=== PATIENT | female | born 1955 | race Caucasian/White ===

== ENCOUNTER 2016-06-19 14:15 | Emergency (ER) | payer BC ==
[2016-06-19 14:51] VITALS: BP 107/59
--- NOTE | 2016-06-19 15:05 | UC ---
Throat Pain/Nasal Teja HPI - HPI Summary HPI Summary: sinus congestion and cough with body aches times 7 days. - History of Current Complaint Chief Complaint: UCRespiratory Stated Complaint: COUGH,SORE THROAT Time Seen by Provider: 06/19/16 14:52 Hx Obtained From: Patient Hx Last Menstrual Period: TUBAL ?: No Onset/Duration: Sudden Onset Severity: Moderate Pain Intensity: 6 Pain Scale Used: 0-10 Numeric Cough: Productive Associated Signs & Symptoms: Positive: Dysphagia, Sinus Discomfort, Nasal Discharge - Allergies/Home Medications Allergies/Adverse Reactions: Allergies Allergy/AdvReac Type Severity Reaction Status Date / Time Sulfa Drugs AdvReac Intermediate GI Upset Verified 06/19/16 14:45 Home Medications: Home Medications Dextromethorphan-Guaifenesin [Mucinex Dm Maximum Streng 60-1200 mg] 1 tab PO Q4H PRN 06/19/16 [History Confirmed 06/19/16] PMH/Surg Hx/FS Hx/Imm Hx Previously Healthy: Yes Endocrine History Of: Reports: Thyroid Disease - Hypothyroidism Denies: Diabetes, Hyperthyroidism, Hypothyroidism, Dyslipidemia Cardiovascular History Of: Denies: Cardiac Disorders, Hypertension, Pacemaker/ICD, Myocardial Infarction , Congestive Heart Failure, Atrial Fibrillation, Deep Vein Thrombosis, Bleeding Disorders Respiratory History Of: Denies: COPD, Asthma, Bronchitis, Pneumonia, Pulmonary Embolism GI/ History Of: Denies: Gastroesophageal Reflux, Ulcer, Gastrointestinal Bleed, Gall Bladder Disease, Kidney Stones, Diverticulitis, Renal Disease, Urosepsis Neurological History Of: Denies: TIA, CVA, Dementia, Seizures, Migraine Psychological History Of: Denies: Anxiety, Depression, Bipolar Disorder, Schizophrenia, Post Traumatic Stress Disorder Cancer History Of: Denies: Lung Cancer, Colorectal Cancer, Breast Cancer, Prostate Cancer, Cervical Cancer Other History Of: Anticoagulant Therapy - Aspirin daily. Negative For: HIV, Hepatitis B, Hepatitis C - Surgical History Surgical History: Yes Surgery Procedure, Year, and Place: Tubal Ligation, 1979, [facility] - Family History Known Family History: Positive: Hypertension Negative: Diabetes - Social History Alcohol Use: None Substance Use Type: None Smoking Status (MU): Current Some Day Smoker Type: Cigarettes Amount Used/How Often: 2-3 per WEEK Length of Time of Smoking/Using Tobacco: 20 YRS - Immunization History Most Recent Influenza Vaccination: 2016 Most Recent Tetanus Shot: 2010 Review of Systems Constitutional: Fatigue Skin: Negative Eyes: Negative ENT: Sore Throat, Ear Ache, Nasal Discharge Respiratory: Cough Cardiovascular: Negative Gastrointestinal: Negative Genitourinary: Negative Motor: Negative Neurovascular: Negative Musculoskeletal: Negative Neurological: Negative Psychological: Negative All Other Systems Reviewed And Are Negative: Yes Physical Exam Triage Information Reviewed: Yes Appearance: Well-Nourished, Ill-Appearing, Pain Distress Vital Signs: Initial Vital Signs Temp 98.9 F 06/19/16 14:47 Pulse 75 06/19/16 14:47 Resp 16 06/19/16 14:47 BP 107/59 06/19/16 14:47 Pulse Ox 95 06/19/16 14:47 Vital Signs Reviewed: Yes Eye Exam: Normal Eyes: Positive: Conjunctiva Clear ENT: Positive: Pharyngeal erythema, Nasal congestion, Nasal drainage, TMs normal Dental Exam: Normal Neck exam: Normal Neck: Positive: Supple, Nontender, Enlarged Nodes @ - left cervical Respiratory Exam: Normal Respiratory: Positive: Chest non-tender, Lungs clear, Normal breath sounds Cardiovascular Exam: Normal Cardiovascular: Positive: RRR, No Murmur, Pulses Normal Abdominal Exam: Normal Abdomen Description: Positive: Nontender, No Organomegaly, Soft Bowel Sounds: Positive: Present Musculoskeletal Exam: Normal Musculoskeletal: Positive: Strength Intact, ROM Intact, No Edema Neurological Exam: Normal Psychological Exam: Normal Skin Exam: Normal Throat Pain/Nasal Course/Dx - Differential Dx/Diagnosis Differential Diagnosis/HQI/PQRI: Influenza, Laryngitis, Pharyngitis, Sinusitis, Tonsillitis Provider Diagnoses: sinusitis. cough Discharge - Discharge Plan Condition: Stable Disposition: HOME Prescriptions: Azithromyxin KAYCEE (NF) [Z-Kaycee (Zithromax)] 250 mg PO .ZPAK INSTRUCTIONS #6 tab predniSONE TAB* [Deltasone TAB*] 40 mg PO DAILY #10 tab Patient Education Materials: Sinusitis (ED) Additional Instructions: take the medication as prescribed. Continue with manual sinus drainage. Start prednisone tomorrow morning. Get plenty of rest and stay hydrated.
== END 2016-06-19 15:17 | disposition home or self-care (01) ==
LOC: UCCORT 14:15
DX: J32.9 Chronic sinusitis, unspecified (principal); R05 Cough; Z88.2 Allergy status to sulfonamides; F17.210 Nicotine dependence, cigarettes, uncomplicated
CPT/HCPCS: 99212; G0463

== ENCOUNTER 2017-03-02 08:00 | Emergency (ER) | payer BC ==
[2017-03-02 08:10] VITALS: BP 137/65
--- NOTE | 2017-03-02 08:33 | UC ---
Respiratory Complaint HPI - HPI Summary HPI Summary: cough, congestion since yesterday. she is a smoker. no prior chronic lung disease. - History of Current Complaint Chief Complaint: UCRespiratory Stated Complaint: COUGH, CONGESTION Time Seen by Provider: 03/02/17 08:21 Hx Obtained From: Patient Hx Last Menstrual Period: TUBAL Onset/Duration: Gradual Onset, Lasting Days Timing: Constant Severity Initially: Moderate Severity Currently: Moderate Character: Cough: Nonproductive Aggravating Factors: Nothing Alleviating Factors: Nothing Associated Signs And Symptoms: Positive: URI, Nasal Congestion, Hoarseness. Negative: Dyspnea, Fever, Chills, Wheezing, Hemoptysis, Dizziness, Calf Pain, Calf Swelling, Edema - Risk Factors Pulmonary Embolism Risk Factors: Smoking Cardiac Risk Factors: Smoking - Allergies/Home Medications Allergies/Adverse Reactions: Allergies Allergy/AdvReac Type Severity Reaction Status Date / Time Sulfa Drugs AdvReac Intermediate GI Upset Verified 03/02/17 08:06 PMH/Surg Hx/FS Hx/Imm Hx Previously Healthy: No - smoker. Other History Of: Anticoagulant Therapy - Aspirin daily. Negative For: HIV, Hepatitis B, Hepatitis C - Surgical History Surgical History: Yes Surgery Procedure, Year, and Place: Tubal Ligation, 1979, [facility] - Family History Known Family History: Positive: Hypertension Negative: Diabetes - Social History Occupation: Employed Full-time Alcohol Use: None Substance Use Type: None Smoking Status (MU): Current Some Day Smoker Type: Cigarettes Amount Used/How Often: 2-3 per WEEK Length of Time of Smoking/Using Tobacco: 20 YRS - Immunization History Most Recent Influenza Vaccination: NONE 2017 Most Recent Tetanus Shot: 2010 Review of Systems ENT: Sinus Congestion Respiratory: Cough All Other Systems Reviewed And Are Negative: Yes Physical Exam Triage Information Reviewed: Yes Appearance: Well-Appearing, No Pain Distress, Well-Nourished Vital Signs: Initial Vital Signs Temp 97.7 F 03/02/17 08:07 Pulse 70 03/02/17 08:07 Resp 18 03/02/17 08:07 BP 137/65 03/02/17 08:07 Pulse Ox 99 03/02/17 08:07 Vital Signs Reviewed: Yes ENT: Positive: Pharyngeal erythema, Nasal congestion, TMs normal. Negative: Tonsillar swelling, Tonsillar exudate, Trismus Neck exam: Normal Neck: Positive: Supple, Nontender, No Lymphadenopathy Respiratory Exam: Normal Respiratory: Positive: Normal breath sounds, No respiratory distress, No accessory muscle use. Negative: Respiratory distress, Decreased breath sounds, Accessory muscle use, Crackles, Rhonchi, Stridor, Wheezing Cardiovascular Exam: Normal Abdominal Exam: Normal Musculoskeletal Exam: Normal Neurological Exam: Normal Psychological Exam: Normal Skin Exam: Normal UC Diagnostic Evaluation - Laboratory O2 Sat by Pulse Oximetry: 99 Respiratory Course/Dx - Differential Dx/Diagnosis Differential Diagnosis/HQI/PQRI: Airway Obstruction, Aspiration, Asthma, Bronchitis, CHF, Pulmonary Edema, Exacerbation Of COPD, Influenza, Laryngitis, Lower Resp Infection, Pneumothorax, Pulmonary Embolism, SARS, Sinusitis Provider Diagnoses: uri Discharge - Discharge Plan Condition: Good Disposition: HOME Prescriptions: Azithromyxin KAYCEE (NF) [Z-Kaycee (Zithromax) 250 mg tabs #6] 2 tab PO .TODAY, THEN 1 DAILY #6 tab guaiFENesin/CODIEN 100MG-10MG* [Robitussin AC 100Mg-10Mg*] 10 ml PO Q8HR #150 udc MDD 30 Patient Education Materials: Decongestant/Expectorant (By mouth), Upper Respiratory Infection (ED) Forms: *Work Release Referrals: Stuart Garibay MD [Primary Care Provider] - If Needed
== END 2017-03-02 08:38 | disposition home or self-care (01) ==
LOC: UCCORT 08:00
DX: J06.9 Acute upper respiratory infection, unspecified (principal); F17.210 Nicotine dependence, cigarettes, uncomplicated; Z88.2 Allergy status to sulfonamides
CPT/HCPCS: 99212; G0463

== ENCOUNTER 2018-05-05 08:03 | Emergency (ER) | payer BC ==
[2018-05-05 08:26] VITALS: BP 141/61
[2018-05-05] MEDS ORDERED: Albuterol 2.5 MG/3 ML NEB.SOL* (0.083%) INH ONE (08:48)
--- NOTE | 2018-05-05 09:08 | ED ---
Respiratory - HPI Summary HPI Summary: 62 year old female presents with 2 week history of URI symptoms with cough. She was seen by her PCP and started on course of azithromycin which she completed. States symptoms did not improve and was re-evaluated by PCP on and stared on 10 day course of doxycycline. She has completed 4 days of this prescription. Reports nasal congestion, nasal drainage, mild shortness of breath , occasional wheezing, and productive cough for yellow sputum. Denies fever, chills, ear pain, sore throat, chest pain, palpitations, abdominal pain, nausea , or vomiting. Quit smoking 3 weeks ago. Previously smoked 1/2 PPD. - History of Current Complaint Chief Complaint: UCRespiratory Stated Complaint: COUGH/ACHES Time Seen by Provider: 05/05/18 08:19 Hx Obtained From: Patient Onset/Duration: Gradual Onset, Lasting Weeks - 2 Current Severity: Mild Pain Intensity: 2 Character: Wheezing, Cough (Productive) Sputum Amount: Small Sputum Color: Yellow Aggravating Factor(s): Nothing Alleviating Factor(s): Nothing Associated Signs and Symptoms: SOB, URI, Wheezing, Nasal Congestion - Allergy/Home Medications Allergies/Adverse Reactions: Allergies Allergy/AdvReac Type Severity Reaction Status Date / Time Sulfa (Sulfonamide Allergy GI Upset Verified 05/05/18 08:14 Antibiotics) Home Medications: Home Medications Aspirin EC TAB* [Ecotrin EC Low Dose 81 MG*] 1 tab DAILY 05/05/18 [History Confirmed 05/05/18] Codeine Phosphate/Guaifenesin [Virtussin AC Liquid] 10 ml BEDTIME PRN 05/05/18 [ History Confirmed 05/05/18] DOXYcycline CAP(*) [DOXYcycline 100MG CAP(*)] 1 cap BID 05/05/18 [History Confirmed 05/05/18] Levothyroxine TAB* [Synthroid 75 MCG TAB*] 1 tab DAILY 05/05/18 [History Confirmed 05/05/18] PMH/Surg Hx/FS Hx/Imm Hx Previously Healthy: Yes Endocrine/Hematology History: Reports: Hx Anticoagulant Therapy - Aspirin daily. , Hx Thyroid Disease - Hypothyroidism Denies: Hx Diabetes Cardiovascular History: Denies: Hx Congestive Heart Failure, Hx Deep Vein Thrombosis, Hx Hypertension , Hx Myocardial Infarction, Hx Pacemaker/ICD Respiratory History: Denies: Hx Asthma, Hx Chronic Obstructive Pulmonary Disease (COPD), Hx Lung Cancer, Hx Pneumonia, Hx Pulmonary Embolism GI History: Denies: Hx Gall Bladder Disease, Hx Gastrointestinal Bleed, Hx Ulcer, Hx Urosepsis History: Denies: Hx Kidney Stones, Hx Renal Disease Neurological History: Denies: Hx Dementia, Hx Migraine, Hx Seizures, Hx Transient Ischemic Attacks (TIA) Psychiatric History: Denies: Hx Anxiety, Hx Depression, Hx Schizophrenia, Hx Bipolar Disorder - Surgical History Surgery Procedure, Year, and Place: Tubal Ligation, 1979, [facility] Infectious Disease History: No Infectious Disease History: Denies: Traveled Outside the [place] in Last 30 Days - Family History Known Family History: Positive: Hypertension Negative: Diabetes - Social History Occupation: Employed Full-time Lives: With Family Alcohol Use: None Substance Use Type: Reports: None Smoking Status (MU): Former Smoker Type: Cigarettes Amount Used/How Often: <1/2 PPD x20 years Length of Time of Smoking/Using Tobacco: 20 YRS Review of Systems Negative: Fever, Chills Negative: Drainage, Erythema Positive: Nasal Discharge. Negative: Sore Throat, Ear Ache Negative: Palpitations, Chest Pain Positive: Shortness Of Breath, Cough, Other - Wheezing Negative: Abdominal Pain, Vomiting, Nausea All Other Systems Reviewed And Are Negative: Yes Physical Exam Triage Information Reviewed: Yes Vital Signs On Initial Exam: Initial Vitals Temp Pulse Resp BP Pulse Ox 98.2 F 70 20 141/61 94 05/05/18 08:20 05/05/18 08:20 05/05/18 08:20 05/05/18 08:20 05/05/18 08:20 Vital Signs Reviewed: Yes Appearance: Positive: Well-Appearing, No Pain Distress, Well-Nourished Skin: Positive: Warm, Skin Color Reflects Adequate Perfusion, Dry Eyes: Positive: Conjunctiva Clear. Negative: Discharge ENT: Positive: Pharyngeal erythema - Mild with cobblestoning, Nasal congestion, Nasal drainage, TMs normal, Uvula midline. Negative: Tonsillar swelling, Tonsillar exudate, Sinus tenderness Neck: Positive: Supple, Nontender, No Lymphadenopathy Respiratory/Lung Sounds: Positive: Rales - Fine crackle RLL, Wheezes - Mild bilateral wheezes Cardiovascular: Positive: RRR, S1, S2. Negative: Murmur Abdomen Description: Positive: Nontender, No Organomegaly, Soft. Negative: Distended, Guarding Neurological: Positive: Alert, Oriented to Person Place, Time Diagnostics - Vital Signs Vital Signs Temp Pulse Resp BP Pulse Ox 05/05/18 08:20 98.2 F 70 20 141/61 94 - Laboratory Lab Statement: Any lab studies that have been ordered have been reviewed, and results considered in the medical decision making process. Re-Evaluation - Re-Evaluation First Eval Re-Evaluation Time: 09:16 Change: Improved Comment: Patient states breathing easier. Cough improved. Bilateral breaths sounds clear with good air exchange. Disposition - Course Course Of Treatment: 62 year old female presents with 2 week history of URI symptoms including cough, nasal congestion, nasal drainage, mild shortness of breath, occasional wheezing, and productive cough for yellow sputum. She was seen by her PCP and started on course of azithromycin which she completed. States symptoms did not improve and was re-evaluated by PCP on and stared on 10 day course of doxycycline. Exam revealed nasal congestion, mild pharyngeal erythema with cobblestoning, bilateral mild wheezes and fine crackles to RLL. Afebrile. She was given albuterol nebulizer with improvement in wheezes and cough. No wheezes or crackles auscultated post-neb treatment. Like an acute bronchitis with RAD however cannot rule out possible CAP. She has been treated with course of azithromycin and is currently on doxycycline therefore did not obtain CXR at this time. Will treat for the RAD with short course of prednisone and albuterol inhaler PRN. She is to continue the doxycycline as prescribed and follow up with PCP within 7 days for recheck of symptoms. Warning symptoms reviewed. Verbalizes understanding and agrees with POC. - Diagnoses Provider Diagnoses: URI with cough and congestion Discharge - Sign-Out/Discharge Documenting (check all that apply): Patient Departure All imaging exams completed and their final reports reviewed: No Studies - Discharge Plan Condition: Stable Disposition: HOME Prescriptions: Albuterol HFA INHALER* [Ventolin HFA Inhaler*] 2 puff INH Q4H PRN #1 mdi PRN Reason: Sob/Wheezing Fluticasone NASAL SPRAY 50MCG* [Flonase NASAL SPRAY 50MCG*] 2 spray BOTH NARES DAILY #1 btl predniSONE [Prednisone 20 MG TAB] 40 mg PO DAILY 5 Days #10 tablet Patient Education Materials: Upper Respiratory Infection (ED), Wheezing (ED) Referrals: Stuart Garibay MD [Primary Care Provider] - 7 Days Additional Instructions: Your history and exam are consistent with an upper respiratory infection. The wheezing and shortness of breath are likely from some inflammation of the airways related to your infection. Continue taking the doxycycline as directed. Be sure to complete the entire course even if you are feeling better. Start prednisone 2 tablets daily for 5 days to help reduce the inflammation and improve the wheezing. Use albuterol inhaler 2 puffs every 4-6 hours as needed for shortness of breath , wheezing, or coughing fits. Use a saline rinse kit such as Neti Pot or NeilMed at least twice a day. Start fluticasone nasal spray 2 sprays each nostril once a day. Take acetaminophen (Tylenol) or ibuprofen (Advil, Motrin) according to directions as needed for fever or pain. Use salt water gargles several times a day if you have a sore throat. You may also use Chloraseptic spray or Cepacol lozenges for some temporary pain relief from your sore throat. Follow-up with your primary care provider in 7 days for recheck of symptoms. Your blood pressure was elevated in the clinic today and should be rechecked at that time. Seek immediate medical attention if you have a persistent fever greater than 100.5 F despite taking acetaminophen or ibuprofen, develop chest pain, difficulty breathing, or have any worsening of symptoms. - Billing Disposition and Condition Condition: STABLE Disposition: Home - Attestation Statements Provider Attestation: I was available for consult. This patient was seen by the ALIZA. The patient was not presented to, seen by, or examined by me. -Amanda
== END 2018-05-05 09:31 | disposition home or self-care (01) ==
LOC: UCCORT 08:03
DX: J06.9 Acute upper respiratory infection, unspecified (principal); R05 Cough; R09.81 Nasal congestion; Z87.891 Personal history of nicotine dependence; Z88.1 Allergy status to other antibiotic agents; E03.9 Hypothyroidism, unspecified; Z79.01 Long term (current) use of anticoagulants
CPT/HCPCS: 99212; G0463

== ENCOUNTER 2018-05-29 09:52 | Emergency (ER) | payer BC ==
[2018-05-29 10:06] VITALS: BP 137/70
--- NOTE | 2018-05-29 10:19 | UC ---
Cardiac HPI - HPI Summary HPI Summary: PT PRESENTS C/O gradual onset left anterior chest pain that began after having been diagnosed with bronchitis and pneumonia. Pt states pain worsens with palpation to area and certain movements. Denies, SOB , arm, jaw or back pain. Denies injury or hx of CAD - History of Current Complaint Chief Complaint: UCChestPain Stated Complaint: CHEST PAIN,FATIGUE Time Seen by Provider: 05/29/18 10:13 Hx Obtained From: Patient Hx Last Menstrual Period: TUBAL Onset/Duration: Gradual Onset, Lasting Days, Still Present Timing: Constant Initial Severity: Mild Current Severity: Moderate - with palpation and with positional changes Pain Intensity: 5 Chest Pain Location: Discrete at:, Upper Sternal, Left Anterior Aggravating Factor(s): Position, Movement, Deep Breaths Alleviating Factor(s): Rest, Position Associated Signs & Symptoms: Positive: Chest Pain - Risk Factors Pulmonary Embolism Risk Factors: Negative Cardiac Risk Factors: Negative Atrial Fibrillation: Negative TAD Risk Factors: Negative - Allergy/Home Medications Allergies/Adverse Reactions: Allergies Allergy/AdvReac Type Severity Reaction Status Date / Time Sulfa (Sulfonamide Allergy GI Upset Verified 05/29/18 10:00 Antibiotics) Home Medications: Home Medications Ascorbic Acid TAB* [Vitamin C TAB*] 1,000 mg PO DAILY 05/29/18 [History Confirmed 05/29/18] PMH/Surg Hx/FS Hx/Imm Hx Previously Healthy: Yes Endocrine History: Thyroid Disease Other History Of: Anticoagulant Therapy - Aspirin daily. Negative For: HIV, Hepatitis B, Hepatitis C - Surgical History Surgical History: Yes Surgery Procedure, Year, and Place: Tubal Ligation, 1979, [facility] - Family History Known Family History: Positive: Hypertension Negative: Diabetes - Social History Occupation: Retired Lives: With Family Alcohol Use: None Substance Use Type: None Smoking Status (MU): Current Some Day Smoker Type: Cigarettes Amount Used/How Often: <1/2 PPD x20 years Length of Time of Smoking/Using Tobacco: < 1/2 PPD x 34 Years (decreased amount ~05/08/18) Have You Smoked in the Last Year: Yes When Did the Patient Quit Smoking/Using Tobacco: Mar 2018 - Immunization History Most Recent Influenza Vaccination: NONE 2016 Most Recent Tetanus Shot: 2010 Review of Systems All Other Systems Reviewed And Are Negative: Yes Constitutional: Positive: Negative Skin: Positive: Negative Eyes: Positive: Negative ENT: Positive: Negative Respiratory: Positive: Negative Cardiovascular: Positive: Chest Pain Gastrointestinal: Positive: Negative Genitourinary: Positive: Negative Motor: Positive: Negative Musculoskeletal: Positive: Arthralgia, Myalgia Neurological: Positive: Negative Psychological: Positive: Negative Is Patient Immunocompromised?: No Physical Exam Triage Information Reviewed: Yes Appearance: Well-Appearing Vital Signs: Initial Vital Signs Temp 97.9 F 05/29/18 10:02 Pulse 80 05/29/18 10:02 Resp 16 05/29/18 10:02 BP 137/70 05/29/18 10:02 Pulse Ox 100 05/29/18 10:02 Vital Signs Reviewed: Yes Eye Exam: Normal ENT Exam: Normal Dental Exam: Normal Neck exam: Normal Respiratory Exam: Normal Cardiovascular Exam: Normal Musculoskeletal Exam: Other - c/o pain with examination left side anterior chest wall, ribs 3-6. no injury, no bruising, no crepitus. Neurological Exam: Normal Psychological Exam: Normal Skin Exam: Normal Diagnostics - Radiology No standard instances Radiology Interpretation Completed By: Radiologist - IMPRESSION: NO EVIDENCE FOR ACTIVE CARDIOPULMONARY DISEASE. - Differential Diagnoses - Chest Pain Differential Diagnosis/HQI/PQRI: Acute VA, ACS, Chest Wall - Clinical Impression Provider Diagnosis: Acute chest wall pain, Costochondritis, acute Discharge - Sign-Out/Discharge Documenting (check all that apply): Patient Departure All imaging exams completed and their final reports reviewed: Yes - Discharge Plan Condition: Stable Disposition: HOME Prescriptions: predniSONE TAB* [Deltasone 10 MG TAB*] 30 mg PO DAILY #12 tab Patient Education Materials: Costochondritis (ED), Chest Wall Pain (ED) Referrals: Stuart Garibay MD [Primary Care Provider] - As Soon As Possible Additional Instructions: PLEASE FOLLOW UP WITH YOUR PCP SOON POSSIBLE. IF YOUR SYMPTOMS WORSEN PLEASE SEEK CARE AT THE CLOSEST EMERGENCY ROOM SOON POSSIBLE. - Billing Disposition and Condition Condition: STABLE Disposition: Home - Attestation Statements Provider Attestation: I was available for consult. This patient was seen by the ALIZA. The patient was not presented to, seen by, or examined by me. -Amanda
== END 2018-05-29 11:02 | disposition home or self-care (01) ==
LOC: UCCORT 09:52
DX: R07.89 Other chest pain (principal); M94.0 Chondrocostal junction syndrome [Tietze]; Z88.2 Allergy status to sulfonamides; F17.210 Nicotine dependence, cigarettes, uncomplicated
CPT/HCPCS: 71046; 93005; 99212; G0463

== ENCOUNTER 2018-06-17 09:38 | Emergency (ER) | payer BC ==
[2018-06-17 10:03] VITALS: BP 137/69
--- NOTE | 2018-06-17 10:04 | UC ---
Cardiac HPI - HPI Summary HPI Summary: left anterior chest wall x 1 day sudden onset at rest, started yesterday afternoon, pain was sharp/ tightness, lasted 10 min , nothing made the pain better or worse no n/v/d/c, no diaphoresis, recent hx of pneumonia about a month ago with pain in her left lower chest wall her symptoms has improved - History of Current Complaint Chief Complaint: UCChestPain Stated Complaint: LEFT SIDE RIB PAIN Time Seen by Provider: 06/17/18 09:48 Hx Obtained From: Patient Hx Last Menstrual Period: TUBAL Onset/Duration: Sudden Onset, Lasting Days - 1, Resolved Timing: Constant Initial Severity: Severe Current Severity: None Pain Intensity: 5 Chest Pain Location: Left Anterior Aggravating Factor(s): Nothing Alleviating Factor(s): Nothing Associated Signs & Symptoms: Positive: Chest Pain, Cough. Negative: Vision Changes, Anxiety, Recent Stress, Headaches, Numbness, Tingling, Weakness, Dizziness, SOB - Allergy/Home Medications Allergies/Adverse Reactions: Allergies Allergy/AdvReac Type Severity Reaction Status Date / Time Sulfa (Sulfonamide Allergy GI Upset Verified 05/29/18 10:00 Antibiotics) PMH/Surg Hx/FS Hx/Imm Hx Endocrine History: Hypothyroidism Other History Of: Anticoagulant Therapy - Aspirin daily. Negative For: HIV, Hepatitis B, Hepatitis C - Surgical History Surgical History: Yes Surgery Procedure, Year, and Place: Tubal Ligation, 1979, [facility] - Family History Known Family History: Positive: Hypertension Negative: Diabetes - Social History Alcohol Use: None Substance Use Type: None Smoking Status (MU): Current Some Day Smoker Type: Cigarettes Amount Used/How Often: <1/2 PPD x20 years Length of Time of Smoking/Using Tobacco: < 1/2 PPD x 34 Years (decreased amount ~05/08/18) Have You Smoked in the Last Year: Yes When Did the Patient Quit Smoking/Using Tobacco: Mar 2018 - Immunization History Most Recent Influenza Vaccination: NONE 2017 Most Recent Tetanus Shot: 2010 Review of Systems All Other Systems Reviewed And Are Negative: Yes Constitutional: Positive: Negative Skin: Positive: Negative Eyes: Positive: Negative ENT: Positive: Negative Respiratory: Positive: Cough Cardiovascular: Positive: Chest Pain Gastrointestinal: Positive: Negative Is Patient Immunocompromised?: No Physical Exam Triage Information Reviewed: Yes Appearance: Well-Appearing, No Pain Distress, Well-Nourished Vital Signs Reviewed: Yes Eye Exam: Normal Eyes: Positive: Conjunctiva Clear ENT: Positive: Normal ENT inspection, Hearing grossly normal, Pharynx normal Neck: Positive: Supple, Nontender, No Lymphadenopathy Respiratory: Positive: Chest non-tender, Lungs clear, Normal breath sounds Cardiovascular: Positive: RRR, No Murmur, Pulses Normal, Other: - tenderness left lower anterior ribs Abdominal Exam: Normal Abdomen Description: Positive: Nontender, Soft. Negative: CVA Tenderness (R), CVA Tenderness (L), Distended, Guarding Bowel Sounds: Positive: Present Skin Exam: Normal Diagnostics - Laboratory Diagnostic Studies Completed/Ordered: chest xray : IMPRESSION: NO ACTIVE CARDIOPULMONARY DISEASE. - Clinical Impression Provider Diagnosis: Pleurisy Discharge - Sign-Out/Discharge Documenting (check all that apply): Patient Departure All imaging exams completed and their final reports reviewed: Yes - Discharge Plan Condition: Stable Disposition: HOME Patient Education Materials: Pleurisy (ED) Referrals: Stuart Garibay MD [Primary Care Provider] - 7 Days - Billing Disposition and Condition Condition: STABLE Disposition: Home
== END 2018-06-17 10:48 | disposition home or self-care (01) ==
LOC: UCCORT 09:38
DX: R09.1 Pleurisy (principal); Z88.2 Allergy status to sulfonamides; F17.210 Nicotine dependence, cigarettes, uncomplicated
CPT/HCPCS: 71046; 93005; 99211; G0463